=== PATIENT | female | born 1990 | race African-American/Black ===

== ENCOUNTER 2016-12-14 03:32 | Emergency (ER) | payer SELFPAY ==
[~2016-12-14] VITALS: Ht 157.5 cm; Wt 72.0 kg
[2016-12-14 03:49] VITALS: BP 115/56
== END 2016-12-14 07:33 | disposition left against medical advice (07) ==
LOC: ER 07:33
DX: L50.8 Other urticaria (principal); E03.8 Other specified hypothyroidism; Z88.0 Allergy status to penicillin